=== PATIENT | male | born 1950 | race Caucasian/White ===

== ENCOUNTER → 2016-10-04 | Outpatient (CLI) | payer OTHER | LOC: FIMAGING 12:12 | PROVIDERS: ATTEND Orthopaedic Surgery | DX: M17.11 Unilateral primary osteoarthritis, right knee (principal); Z01.818 Encounter for other preprocedural examination ==

== ENCOUNTER 2016-10-22 06:07 | Observation (INO) | payer OTHER ==
[~2016-10-22 06:07] MED LIST: ACETAMINOPHEN 325 MG TAB PO ONE; CHLORHEXIDINE GLUC HIBICLENS 118 ML BTL TP ONE; DEXAMETHASONE 4 MG/ML VIAL IVP ONE; FAMOTIDINE 20 MG TAB PO ONE; ROPI/epiNEPH/KETOROLAC JOINT COCKTAIL IU ONE; ceFAZolin 2 GM/DEXTROSE 100 ML IV ONE
--- NOTE | 2016-10-22 06:48 | PDANEPAE ---
ANE History of Present Illness 66m with right knee pain 2/2 patella fx ANE Past Medical History - Cardiovascular History Hx Hypertension: No Hx Arrhythmias: No Hx Chest Pain: No Hx Coronary Artery / Peripheral Vascular Disease: No Hx CHF / Valvular Disease: No Hx Palpitations: No - Pulmonary History Hx COPD: No Hx Asthma/Reactive Airway Disease: No Hx Recent Upper Respiratory Infection: No Hx Oxygen in Use at Home: No - Neurologic History Hx Cerebrovascular Accident: No Hx Seizures: No Hx Dementia: No - Endocrine History Hx Diabetes: No Hypothyroid: Yes - Renal History Hx Renal Disorders: Yes - Liver History Hx Hepatic Disorders: No - Neurological & Psychiatric Hx Hx Neurological and Psychiatric Disorders: No - Cancer History Hx Cancer: No - Congenital Disorder History Hx Congenital Disorders: No - GI History Hx Gastrointestinal Disorders: No - Chronic Pain History Chronic Pain: No ANE Review of Systems - Exercise capacity METS (RN): 4 METS ANE Patient History - Allergies Allergies/Adverse Reactions: Penicillins Allergy (Verified 09/26/16 10:49) Rash - Home Medications Home Medications: Levothyroxine [Synthroid 50 mcg (*)] 50 mcg PO DAILY06 09/26/16 [Last Taken Unknown] Multivitamins [Multivitamin (*)] 1 each PO DAILY 09/26/16 [Last Taken Unknown] - NPO status NPO Since - Liquids (Date): 10/22/16 NPO Since - Liquids (Time): 05:00 NPO Since - Solids (Date): 10/21/16 NPO Since - Solids (Time): 21:30 - Anes Hx Anes Hx: no prior problems - Smoking Hx Smoking Status: Never smoked - Alcohol Use Alcohol Use: None - Family Anes Hx Family Anes Hx: none ANE Labs/Vital Signs - Vital Signs Height: 170.18 cm Weight: 67.132 kg ANE Physical Exam - Airway Neck exam: FROM Mallampati Score: Class 1 Mouth exam: normal dental/mouth exam - Pulmonary Pulmonary: no respiratory distress - Cardiovascular Cardiovascular: no murmur, rub, or gallop - ASA Status ASA Status: II ANE Anesthesia Plan Anesthesia Plan: spinal Regional Anesthesia: adductor canal FNB
[2016-10-22] MEDS ORDERED: CALCIUM CHLORIDE 1 GM/10 ML INJ ONE (06:50)
[2016-10-22] MEDS ORDERED: BUPIVACAINE 0.5% 30 ML SDV ONE ×2 (06:50→06:54)
[2016-10-22] MEDS ORDERED: THROMBIN (BOVINE) 5,000 UNIT VIAL TP ONE (06:50)
[2016-10-22] MEDS ORDERED: ceFAZolin 1 GM/5 ML SYR ONE (06:50)
[2016-10-22] MEDS ORDERED: PROPOFOL 200 MG/20 ML VIAL ONE ×4 (06:57→08:57)
[2016-10-22] MEDS ORDERED: MIDAZOLAM 2 MG/2 ML VIAL IVP ONE (07:00)
[2016-10-22] MEDS ORDERED: MIDAZOLAM 2 MG/2 ML VIAL ONE (07:02)
[2016-10-22] MEDS ORDERED: ACETAMINOPHEN 500 MG TAB PO PRN (08:10)
[2016-10-22] MEDS ORDERED: fentaNYL 100 MCG/2 ML INJ IVP PRN (08:10)
[2016-10-22] MEDS ORDERED: OXYCODONE/APAP 5/325 TAB PO PRN (08:10)
[2016-10-22] MEDS ORDERED: PROMETHAZINE HCL 25 MG/ML INJ IVP PRN ×2 (08:10→10:26)
[2016-10-22] MEDS ORDERED: LR 500 ML IV PRN (08:10)
[2016-10-22] MEDS ORDERED: ONDANSETRON 4 MG/2 ML VIAL IVP PRN ×2 (08:10→10:26)
[2016-10-22] MEDS ORDERED: HYDROCODONE/APAP 5/325 TAB PO PRN (08:10)
[2016-10-22] MEDS ORDERED: NALOXONE HCL 0.4 MG/ML INJ IVP PRN (08:10)
[2016-10-22] MEDS ORDERED: HYDROmorphONE/DILAUDID 1 MG/ML SYR IVP PRN (08:10)
--- NOTE | 2016-10-22 08:13 | POSTANESTH ---
Post Anesthetic Evaluation Cardiovascular Status: Normal, Stable Respiratory Status: Normal, Stable Level of Consciousness/Mental Status: Can Participate in Eval, Alert and Oriented Pain Control: Adequate, Prn Tx Ordered Nausea/Vomiting Control: Adequate, Prn Tx Ordered Complications Possibly Related to Anesthesia: None Noted
[2016-10-22] MEDS ORDERED: oxyCODONE IR 5 MG TAB PO PRN (10:26)
[2016-10-22] MEDS ORDERED: POLYETHYLENE GLYCOL 3350 17 GM PKT PO PRN (10:26)
[2016-10-22] MEDS ORDERED: DIPHENOXYLATE/ATROPINE LOMOTIL 1 TAB PO PRN (10:26)
[2016-10-22] MEDS ORDERED: FAMOTIDINE 20 MG TAB PO PRN (10:26)
[2016-10-22] MEDS ORDERED: METOCLOPRAMIDE 10 MG/2 ML VIAL IVP PRN (10:26)
[2016-10-22] MEDS ORDERED: CYCLOBENZAPRINE 10 MG TAB PO PRN (10:26)
[2016-10-22] MEDS ORDERED: BISACODYL 10 MG SUPP PR PRN (10:26)
[2016-10-22] MEDS ORDERED: ONDANSETRON DISINTEGRATING 4 MG TAB PO PRN (10:26)
[2016-10-22] MEDS ORDERED: LACTULOSE 20 GM/30 ML UDCUP PO PRN (10:26)
[2016-10-22] MEDS ORDERED: PHARMACY PAIN CONSULT 1 EA MISC PRN (10:26)
[2016-10-22] MEDS ORDERED: MAGNESIUM HYDROXIDE 30 ML UDCUP PO PRN (10:26)
[2016-10-22] MEDS ORDERED: PROMETHAZINE HCL 25 MG SUPPR PR PRN (10:26)
[2016-10-22] MEDS ORDERED: diphenhydrAMINE 25 MG CAP PO PRN (10:26)
[2016-10-22] MEDS ORDERED: LR 1,000 ML IV SCH (10:30)
--- NOTE | 2016-10-22 10:34 | POSTOPPROG ---
Post Op Note Date of Operation: 10/22/16 Surgeon: Chloé Escobedo Director Dental Services: Carmen Sosa PA-C Anesthesiologist: Dr. Pichardo Anesthesia: Spinal Pre-op Diagnosis: knee osteoarthritis Post-op Diagnosis: knee osteoarthritis Indication: knee pain Procedure: right knee patellofemoral resurfacing, partial replacement Inf/Abcess present in the surg proc area at time of surgery?: No EBL: 50-100 Complications: none
--- NOTE | 2016-10-22 10:36 | SOAPPROG ---
SOAP Progress Note Assessment/Plan: Assessment/Plan 66y/o male s/p right knee patellofemoral resurfacing/partial replacement - stable and doing well - nerve block in place - PT/OT - pain meds as ordered - post-op xrays pending - active care SCD system - likely home later today pending clinica course - call with issues or concerns 10/22/16 10:34 Subjective: Feeling well, would like to go home later today. Objective: Vital Signs Temp Pulse Resp BP Pulse Ox 36.7 C 60 16 121/75 H 95 10/22/16 06:58 10/22/16 06:58 10/22/16 06:58 10/22/16 06:58 10/22/16 06:58 NAD, waking from anesthesia, no distress EOMi, face symmetric MAEx4 incision clean, dressed ICD10 Worksheet Patient Problems: Problems Problem Status Onset Osteoarthritis Acute - ICD10 Problem Qualifiers (1) Osteoarthritis Qualifiers: Osteoarthritis location: O Osteoarthritis type: O Spinal region: S Spinal osteoarthritis complication: S Laterality: L
--- NOTE | 2016-10-22 10:40 | PDANEPAE ---
ANE Past Medical History - Cardiovascular History Hx Hypertension: No Hx Arrhythmias: No Hx Coronary Artery / Peripheral Vascular Disease: No Hx CHF / Valvular Disease: No Hx Palpitations: No - Pulmonary History Hx COPD: No Hx Asthma/Reactive Airway Disease: No Hx Recent Upper Respiratory Infection: No Hx Oxygen in Use at Home: No - Neurologic History Hx Cerebrovascular Accident: No Hx Seizures: No Hx Dementia: No - Endocrine History Hx Diabetes: No - Renal History Hx Renal Disorders: Yes - Liver History Hx Hepatic Disorders: No - Neurological & Psychiatric Hx Hx Neurological and Psychiatric Disorders: No - Cancer History Hx Cancer: No - Congenital Disorder History Hx Congenital Disorders: No - GI History Hx Gastrointestinal Disorders: No - Chronic Pain History Chronic Pain: No ANE Review of Systems - Exercise capacity METS (RN): 4 METS ANE Patient History - Allergies Allergies/Adverse Reactions: Penicillins Allergy (Verified 09/26/16 10:49) Rash - Home Medications Home Medications: Levothyroxine [Synthroid 50 mcg (*)] 50 mcg PO DAILY06 09/26/16 [Last Taken 04/28] Multivitamins [Multivitamin (*)] 1 each PO DAILY 09/26/16 [Last Taken 10/20/16] - NPO status NPO Since - Liquids (Date): 10/22/16 NPO Since - Liquids (Time): 05:00 NPO Since - Solids (Date): 10/21/16 NPO Since - Solids (Time): 21:00 - Smoking Hx Smoking Status: Never smoked - Alcohol Use Alcohol Use: None ANE Labs/Vital Signs - Vital Signs Blood Pressure: 121/75 Heart Rate: 60 Respiratory Rate: 16 O2 Sat (%): 95 Height: 170.18 cm Weight: 67.132 kg
[2016-10-22] MEDS: ACETAMINOPHEN 325 MG TAB PO SCH ×3 (12:16→23:59)
[2016-10-22] MEDS: ceFAZolin 2 GM/DEXTROSE 100 ML IV SCH ×2 (14:01→20:58)
[2016-10-22] MEDS: SENNOSIDES/DOCUSATE SODIUM TAB PO SCH (20:59)
[2016-10-23] MEDS: ACETAMINOPHEN 325 MG TAB PO SCH ×2 (05:06→11:24)
[2016-10-23] MEDS ORDERED: LEVOTHYROXINE 50 MCG TAB PO SCH (06:00)
[2016-10-23 06:39] VITALS: PULSE 56
[2016-10-23] MEDS: SENNOSIDES/DOCUSATE SODIUM TAB PO SCH (08:45)
[2016-10-23 09:07] VITALS: BP 122/64; RESP 15; TEMP 98.1; O2SAT 93
--- NOTE | 2016-10-23 11:32 | SOAPPROG ---
SOAP Progress Note Assessment/Plan: Assessment/Plan 66y/o male day#1 s/p right knee patellofemoral resurfacing/partial replacement - stable and doing well - minimal pain, discussed pain management strategies for home - PT/OT - did great including stairs; will start outpatient therapy next week - post-op xrays reviewed, no immediate complications - active care SCD system, start ASA today - home this morning, discussed return precautions - call with issues or concerns 10/23/16 11:29 Subjective: Minimal pain. Eating, drinking, voiding fine now. Ambulating well Objective: Vital Signs Temp Pulse Resp BP Pulse Ox 36.7 C 56 L 15 122/64 H 93 10/23/16 09:06 10/23/16 09:06 10/23/16 09:06 10/23/16 09:06 10/23/16 09:06 10/22/16 10/23/16 10/24/16 05:59 05:59 05:59 Intake Total 2575 250 Output Total 1130 375 Balance 1445 -125 NAD, EOMi, face symmetric MAEx4 right lower extremity neurovascularly intact extension 0, flexion 90 incision CDI, no active drainage; new dressing placed in sterile fashion ICD10 Worksheet Patient Problems: Problems Problem Status Onset Osteoarthritis Acute - ICD10 Problem Qualifiers (1) Osteoarthritis Qualifiers: Osteoarthritis location: O Osteoarthritis type: O Spinal region: S Spinal osteoarthritis complication: S Laterality: L
[2016-10-23] MEDS ORDERED: ASPIRIN 325 MG TAB PO SCH (21:00)
--- NOTE | 2016-10-24 16:19 | GDS ---
[f rep st] DISCHARGE SUMMARY ADMISSION DIAGNOSIS: Patellofemoral osteoarthritis. DISCHARGE DIAGNOSIS: Patellofemoral osteoarthritis. HOSPITAL COURSE: The patient is a pleasant 66-year-old gentleman who is well known to our practice for ongoing osteoarthritis in his right knee. He has a history of a prior patellar fracture and deve loped prominent patellofemoral arthritis. After careful decision-making and discussion, he underwent a right partial knee replacement with use of [employer] computer. He tolerated the procedure well without complication and was transferred to the floor, and PACU criteria was met. He had some difficulty vo iding immediately postoperatively; however, this quickly resolved. He worked with physical therapy a nd occupational therapy and continued to make progress. He had minimal pain postoperatively. He was educated on activity restrictions as well as pain management strategies. He was also given in struction on how to avoid constipation issues. All of his questions were answered prior to discharge home on October 23, 2016. He was in good and stable condition at that time, and all of his questions h ad been answered. He was given strict instruction to follow up in 2 weeks or sooner with any issues or changes. /[id number]/MODL
== END 2016-10-23 12:00 | disposition home or self-care (01) ==
LOC: FSGY 06:07 → F3N 06:17 → EDSTATUS 07:15 → F3N 11:49
PROVIDERS: ADMIT Orthopaedic Surgery; ATTEND Orthopaedic Surgery
PROC: 0SRC0JZ Replacement of Right Knee Joint with Synthetic Substitute, Open Approach (ICD-10-PCS; principal; 2016-10-22 07:15)
DX: M17.11 Unilateral primary osteoarthritis, right knee (principal); Z88.0 Allergy status to penicillin
CPT/HCPCS: 27447; 73560; 97161; 97165; G0378; C1713; J0171; J0690; J1100; J1885; J2250; J2704; J2795

== ENCOUNTER → 2017-04-15 | Outpatient (CLI) | payer OTHER | LOC: CIMAGING 08:56 | PROVIDERS: ATTEND Internal Medicine | DX: K80.20 Calculus of gallbladder without cholecystitis without obstruction (principal) | CPT/HCPCS: 76700-PO ==

== ENCOUNTER → 2017-05-08 | Outpatient (CLI) | payer OTHER | LOC: CIMAGING 10:30 | PROVIDERS: ATTEND Orthopaedic Surgery | DX: I82.4Z1 Acute embolism and thrombosis of unspecified deep veins of right distal lower extremity (principal) | CPT/HCPCS: 93971-PO ==

== ENCOUNTER → 2018-04-22 | Outpatient (CLI) | payer OTHER | LOC: CLAB 10:25 | PROVIDERS: ATTEND Internal Medicine | DX: I87.8 Other specified disorders of veins (principal); Z87.81 Personal history of (healed) traumatic fracture | CPT/HCPCS: 36415-PO; 71046-PO ==

== ENCOUNTER → 2018-05-20 | Outpatient (CLI) | payer OTHER | LOC: BHFA 11:30 | PROVIDERS: ATTEND Internal Medicine Interventional Cardiology | DX: R00.2 Palpitations (principal) ==

== ENCOUNTER → 2018-06-06 | Outpatient (CLI) | payer OTHER | LOC: BRMIMAGING 08:45 | PROVIDERS: ATTEND Internal Medicine | DX: Z13.820 Encounter for screening for osteoporosis (principal); M81.0 Age-related osteoporosis without current pathological fracture; E78.5 Hyperlipidemia, unspecified; R00.2 Palpitations; Q27.9 Congenital malformation of peripheral vascular system, unspecified ==

== ENCOUNTER → 2018-06-09 | Outpatient (CLI) | payer OTHER | LOC: BHFA 11:30 | PROVIDERS: ATTEND Internal Medicine Cardiovascular Disease | DX: I49.3 Ventricular premature depolarization (principal) ==